=== PATIENT | male | born 1960 | race American Indian/Alaskan Native ===

== ENCOUNTER 2018-11-26 06:35 | Emergency (ER) | payer OTHER ==
[2018-11-26] MEDS ORDERED: PROVENTIL IH ONE ×2 (06:52→10:30)
[2018-11-26] MEDS ORDERED: NACL 0.9% 1000 ML 1,000 ML IV ONE (06:52)
[2018-11-26] MEDS ORDERED: ATROVENT IH ONE ×2 (06:52→10:30)
--- NOTE | 2018-11-26 06:58 | Emergency Department Report ---
ED Shortness of Breath HPI - General Stated Complaint: SHEA Time Seen by Provider: 11/26/18 06:45 - History of Present Illness Initial Comments: Mr. Welch is a 58 yo male who presents via EMS for asthma attack. He has hx of asthma, COPD and tobacco abuse. He has had severe shortness of breath for the past several days. No relief with rescue inhaler Ventolin. He also uses Spiriva and Advair. Has had productive cough white sputum. Denies fever. Di agnosed with pneumonia several months ago. Has had 2 ED visits within the last 6 months. Has been hospitalized for asthma/COPD issues in the past. No hx of intubations. Per EMS, he received IV magnesium, IV Solu-Medrol and 5 mg of albuterol. MD Complaint: shortness of breath -: Gradual, days(s) (2) Severity: severe Improves With: bronchodilators, upright position Known History Of: COPD, asthma - Related Data Previous Rx's Medication Instructions Recorded Last Taken Type Doxycycline Hyclate [Doxycycline 100 mg PO Q12HR 7 Days #14 tab 11/26/18 Unknown Rx Hyclate TAB] Prednisone [predniSONE 10 mg 10 mg PO .TAPER #1 tab.ds.pk 11/26/18 Unknown Rx (6-Day Pack, 21 Tabs)] Allergies Allergy/AdvReac Type Severity Reaction Status Date / Time No Known Allergies Allergy Unverified 11/26/18 06:58 ED Review of Systems ROS: Stated complaint: SHEA Other details as noted in HPI Comment: All other systems reviewed and negative Constitutional: denies: fever, malaise Respiratory: cough, shortness of breath, wheezing ED Past Medical Hx - Past Medical History Previous Medical History?: Yes Hx Asthma: Yes Hx COPD: Yes - Family History Family history: no significant - Social History Smoking Status: Current Every Day Smoker Other Social History: 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 Absent: scleral icterus, conjunctival injection - ENT ENT exam: Present: mucous membranes moist - Neck Neck exam: Present: normal inspection, full ROM - Respiratory Respiratory exam: Present: respiratory distress, wheezes, accessory muscle use, decreased breath sounds, prolonged expiratory. Absent: rales, rhonchi - Cardiovascular Cardiovascular Exam: Present: normal rhythm, tachycardia, normal heart sounds. Absent: systolic murmur, diastolic murmur, rubs, gallop - GI/Abdominal GI/Abdominal exam: Present: soft, normal bowel sounds. Absent: distended, tenderness, guarding, rebound - Rectal Rectal exam: Present: deferred - Extremities Exam Extremities exam: Present: normal inspection - Back Exam Back exam: Present: normal inspection - Neurological Exam Neurological exam: Present: alert, oriented X3 - Psychiatric Psychiatric exam: Present: normal affect, anxious - Skin Skin exam: Present: warm, dry, intact, normal color. Absent: rash ED Course Vital Signs 11/26/18 11/26/18 11/26/18 06:50 06:56 07:00 Temperature 98.5 F Pulse Rate 111 H 110 H 96 H Respiratory 13 15 18 Rate Blood Pressure 117/80 115/77 O2 Sat by Pulse 100 99 100 Oximetry 11/26/18 11/26/18 11/26/18 07:06 08:57 08:59 Temperature Pulse Rate 109 H 114 H Respiratory 18 18 19 Rate Blood Pressure 124/81 124/81 O2 Sat by Pulse 98 98 98 Oximetry 11/26/18 11/26/18 11/26/18 09:00 09:01 09:03 Temperature Pulse Rate 110 H 115 H 112 H Respiratory 12 19 17 Rate Blood Pressure 130/88 130/88 130/88 O2 Sat by Pulse 98 98 97 Oximetry 11/26/18 11/26/18 11/26/18 09:05 09:07 09:09 Temperature Pulse Rate 110 H 110 H 97 H Respiratory 16 22 12 Rate Blood Pressure 130/88 130/88 130/88 O2 Sat by Pulse 97 97 100 Oximetry 11/26/18 11/26/18 11/26/18 09:11 09:12 09:13 Temperature Pulse Rate 97 H 95 H 88 Respiratory 7 L 8 L 6 L Rate Blood Pressure 130/88 125/70 130/88 O2 Sat by Pulse 100 100 100 Oximetry 11/26/18 11/26/18 11/26/18 09:15 09:17 09:19 Temperature Pulse Rate 94 H 114 H 98 H Respiratory 8 L 9 L 12 Rate Blood Pressure 116/77 116/77 116/77 O2 Sat by Pulse 100 100 Oximetry 11/26/18 11/26/18 11/26/18 09:21 09:23 09:25 Temperature Pulse Rate 100 H 98 H 100 H Respiratory 11 L 14 14 Rate Blood Pressure 116/77 116/77 130/88 O2 Sat by Pulse 99 99 100 Oximetry 11/26/18 11/26/18 11/26/18 09:27 09:29 09:30 Temperature Pulse Rate 94 H 97 H 99 H Respiratory 13 14 14 Rate Blood Pressure 130/88 130/88 114/72 O2 Sat by Pulse 100 100 98 Oximetry 11/26/18 11/26/18 11/26/18 09:31 09:33 09:35 Temperature Pulse Rate 98 H 99 H 94 H Respiratory 13 13 9 L Rate Blood Pressure 114/72 114/72 114/72 O2 Sat by Pulse 100 100 100 Oximetry 11/26/18 11/26/18 11/26/18 09:37 09:39 09:41 Temperature Pulse Rate 101 H 104 H 100 H Respiratory 14 10 L 16 Rate Blood Pressure 114/72 114/72 114/72 O2 Sat by Pulse 100 100 99 Oximetry 11/26/18 11/26/18 11/26/18 09:43 09:45 09:47 Temperature Pulse Rate 104 H 106 H 107 H Respiratory 15 18 16 Rate Blood Pressure 114/72 101/70 101/70 O2 Sat by Pulse 100 99 99 Oximetry 11/26/18 11/26/18 11/26/18 09:49 09:51 09:53 Temperature Pulse Rate 105 H 110 H 105 H Respiratory 17 14 19 Rate Blood Pressure 101/70 101/70 101/70 O2 Sat by Pulse 97 97 97 Oximetry 11/26/18 11/26/18 11/26/18 09:55 09:57 09:59 Temperature Pulse Rate 109 H 110 H 104 H Respiratory 13 17 15 Rate Blood Pressure 101/70 101/70 101/70 O2 Sat by Pulse 96 96 96 Oximetry 11/26/18 11/26/18 11/26/18 10:00 10:01 10:03 Temperature Pulse Rate 102 H 107 H 105 H Respiratory 17 14 17 Rate Blood Pressure 110/68 110/68 110/68 O2 Sat by Pulse 95 95 95 Oximetry 11/26/18 11/26/18 11/26/18 10:05 10:07 10:09 Temperature Pulse Rate 103 H 108 H 102 H Respiratory 15 19 17 Rate Blood Pressure 110/68 110/68 110/68 O2 Sat by Pulse 95 94 96 Oximetry 11/26/18 11/26/18 11/26/18 10:11 10:13 10:15 Temperature Pulse Rate 105 H 106 H 103 H Respiratory 16 13 16 Rate Blood Pressure 110/68 110/68 109/70 O2 Sat by Pulse 95 96 94 Oximetry 11/26/18 11/26/18 11/26/18 10:17 10:19 10:21 Temperature Pulse Rate 103 H 106 H 112 H Respiratory 14 14 16 Rate Blood Pressure 109/70 109/70 109/70 O2 Sat by Pulse 96 95 96 Oximetry 11/26/18 11/26/18 11/26/18 10:22 10:31 10:32 Temperature Pulse Rate Respiratory Rate Blood Pressure 110/68 110/68 146/86 O2 Sat by Pulse 95 100 98 Oximetry - Reevaluation(s) Reevaluation #1: 11/26/18 10:31 After ambulating approximately 20 yards from the bathroom, Mr. Welch experience severe shortness of breath. On auscultation poor air movement persistent wheezing, prolonged expiratory phase. ED Medical Decision Making - Lab Data Result diagrams: 11/26/18 07:01 11/26/18 07:01 Laboratory Results - last 72 hr 11/26/18 11/26/18 07:01 07:01 WBC 8.4 RBC 4.48 Hgb 13.4 Hct 40.1 MCV 90 MCH 30 MCHC 33 RDW 15.0 Plt Count 247 Lymph % (Auto) 22.0 [place] % (Auto) 11.5 H Eos % (Auto) 2.1 Baso % (Auto) 1.2 Lymph # 1.8 [place] # 1.0 H Eos # 0.2 Baso # 0.1 Seg Neutrophils % 63.2 Seg Neutrophils # 5.3 Sodium 141 Potassium 4.5 Chloride 101.6 Carbon Dioxide 26 Anion Gap 18 BUN 8 L Creatinine 0.8 Estimated GFR > 60 BUN/Creatinine Ratio 10 Glucose 139 H Calcium 9.3 - EKG Data 11/26/18 06:58 EKG obtained 0 649 Sinus tachycardia rate 110 beats a minute normal axis normal intervals no ST elevation no T-wave inversion - Radiology Data Radiology results: report reviewed Chest x-ray shows findings of COPD no acute process according to radiology report - Medical Decision Making Mr. Welch presents with acute COPD and asthma exacerbation. He required several interventions and several reassessments. After 6 hours observation in ED he was ready for discharge home. Prescribed prednisone taper and doxycycline. 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 Critical Care Time: Yes Critical care time in (mins) excluding proc time.: 40 Critical care attestation.: If time is entered above; I have spent that time in minutes in the direct care of this critically ill patient, excluding procedure time. 40 minutes of critical care time excluding procedures were used in the care of the patient. I came to the bedside immediately upon arrival. I was concerned for impending respiratory failure. Mr. Welch has obvious work of breathing with accessory muscle use. I immediately contacted respiratory therapist for intervention. Patient required multiple assessments and interventions. I reviewed the electronic medical record. ED Disposition Clinical Impression: COPD with acute exacerbation, Acute asthma exacerbation Disposition: DC- TO HOME OR SELFCARE Is pt being admited?: No Does the pt Need Aspirin: No Condition: Stable Instructions: Chronic Obstructive Pulmonary Disease (ED) Prescriptions: Doxycycline Hyclate [Doxycycline Hyclate TAB] 100 mg PO Q12HR 7 Days #14 tab Prednisone [predniSONE 10 mg (6-Day Pack, 21 Tabs)] 10 mg PO .TAPER #1 tab.ds.pk Referrals: DENIS JOHNSON MD [Primary Care Provider] - 3-5 Days Forms: Work/School Release Form(ED)
[2018-11-26 07:12] LABS: Basophils # (Auto) 0.1 K/mm3 (0.0-0.1); Basophils % (Auto) 1.2 % (0.0-1.8); Eosinophils # (Auto) 0.2 K/mm3 (0.0-0.4); Eosinophils % (Auto) 2.1 % (0.0-4.3); Hematocrit 40.1 % (35.5-45.6); Hemoglobin 13.4 gm/dl (11.8-15.2); Lymphocytes # (Auto) 1.8 K/mm3 (1.2-5.4); Mean Corpuscular HGB Conc 33 % (32-34); Mean Corpuscular Volume 90 fl (84-94); Monocytes % (Auto) 11.5 % (0.0-7.3); Platelet Count 247 K/mm3 (140-440); Red Blood Count 4.48 M/mm3 (3.65-5.03)
--- NOTE | 2018-11-26 07:18 | XRay Report ---
PROCEDURE: XR CHEST 1V AP HISTORY: Asthma COMPARISONS: None FINDINGS: Normal cardiomediastinal silhouette. No focal infiltrate, CHF changes, mass or pleural effusion. Lungs are hyperinflated with flattened hemidiaphragms, consistent with COPD stigmata. No pneumothorax. Unremarkable osseous structures. Impression: 1. No radiographic evidence of active infiltrate. 2. COPD changes. IMPRESSION: . This document is electronically signed by Veronica Saunders MD., November 26 2018 07:16:39 AM ET
[2018-11-26 07:25] LABS: BUN/Creatinine Ratio 10; Blood Urea Nitrogen 8 mg/dL (9-20); Calcium 9.3 mg/dL (8.4-10.2); Hemolysis Index 8
[2018-11-26] MEDS ORDERED: VIBRAMYCIN PO ONE (07:52)
[2018-11-26 10:34] VITALS: BP 146/86
== END 2018-11-26 13:31 | disposition home or self-care (01) ==
LOC: ED 06:35
DX: J44.1 Chronic obstructive pulmonary disease with (acute) exacerbation (principal); F17.200 Nicotine dependence, unspecified, uncomplicated
CPT/HCPCS: 36415; 71045; 80048; 85025; 93005; 93010; 94640; 96360; 99291; J7030